=== PATIENT | female | born 1980 | race Two or more races ===

== ENCOUNTER 2017-01-05 07:31 | Inpatient (IN) | payer SELFPAY ==
[2014-08-27 13:30] VITALS: BP 118/69
[2017-01-05] MEDS ORDERED: IV RINGERS,LACTATED 1000ML 1,000 ML IV SCH ×3 (08:13→12:30)
[2017-01-05] MEDS ORDERED: hydrOXYzine IM 50 MG/ML VIAL IM ONE (08:15)
[2017-01-05 09:00] LABS: BASO % 0 % (0-3); EOS % 1 % (0-3); HEMATOCRIT 37.9 % (36.0-47.0); HEMOGLOBIN 12.8 g/dL (12.0-15.5); LYMPH # 2.4 x10^3/uL (1.0-4.8); LYMPH % 25 % (24-48); MEAN CORPUSCULAR HEMOGLOBIN 31 pg (25-35); MEAN CORPUSCULAR HGB CONC 34 g/dL (31-37); MEAN CORPUSCULAR VOLUME 91 fL (79-100); MONO % 8 % (0-9); NEUT % 65 % (31-73); PLATELET COUNT 94 x10^3/uL (140-400); RED BLOOD COUNT 4.15 x10^6/uL (3.50-5.40); RED CELL DISTRIBUTION WIDTH 13.9 % (11.5-14.5); WHITE BLOOD COUNT 9.7 x10^3/uL (4.0-11.0)
[2017-01-05 09:23] LABS: BILIRUBIN,URINE NEGATIVE (NEG); GLUCOSE,URINE NEGATIVE (NEG); NITRITE,URINE NEGATIVE (NEG); PROTEIN,URINE NEGATIVE (NEG-TRACE); UROBILINOGEN,URINE 0.2 mg/dL (0.2 mg/dL)
[2017-01-19] MEDS ORDERED: NAPR500T PO (17:13)
[2017-01-19] MEDS ORDERED: OXYC-323 PO (17:13)
--- NOTE | 2017-02-15 12:48 | SSS ---
ADMIT DATE: 01/05/2017 SUBJECTIVE: This patient is a 36 years old female who is a 3, para 2, history of previous two sections and she is about 36 weeks at the present time, comes into the hospital Labor and Delivery area with a history of having contractions and not feeling good and hence the patient was observed in the hospital. OBJECTIVE: VITAL SIGNS: Stable. HEAD, EYES, NOSE, THROAT: Exam within normal limits. LUNGS: Clear. HEART: Sounds regular sinus rhythm. ABDOMEN: About 37 weeks' size uterus. heart tones are 140 per minute. Vertex presenting. PELVIC: Exam shows cervical os is closed and no vaginal bleeding noted. HOSPITAL COURSE: She did have a monitoring done in Labor and Delivery room area and also urine sample was sent, which came back as normal and she was given IV fluids and after that she did feel better and the patient was sent home with the advice to be seen by the ____ for the care and she was told to call the office and make an appointment within 1 week. DIAGNOSES: 3, para 2, previous two sections. PLAN: Observation and treatment given. She should call the doctor's office to make an appointment in 1 week. JAX ALMARAZ MD DR: MADELYN/yahir JOB#: [id number] / [id number]
== END 2017-01-05 14:30 | disposition home or self-care (01) | DRG 780 ==
LOC: 3 SO LND 07:31 → OBSVTOIN 08:19
PROVIDERS: ADMIT Obstetrics & Gynecology; ATTEND Obstetrics & Gynecology
DX: O47.03 False labor before 37 completed weeks of gestation, third trimester (principal); O09.523 Supervision of elderly multigravida, third trimester; Z3A.37 37 weeks gestation of pregnancy
CPT/HCPCS: 36415; 81003; 82947; 85027; G0379; J3410; J7120

== ENCOUNTER 2020-04-08 14:18 | Emergency (ER) | payer SELFPAY ==
[~2020-04-08] VITALS: Ht 162.6 cm; Wt 76.0 kg
[~2020-04-08 14:18] MED LIST: NAPR-683 PO; OXYC1TAB15 PO
[2020-04-08] MEDS ORDERED: LORazepam 0.5 MG TABLET PO ONE (15:30)
[2020-04-08] MEDS ORDERED: LORA0.5T96 PO (17:04)
--- NOTE | 2020-04-08 17:04 | PHYS DOC ---
Past Medical History Past Medical History: No Pertinent History Past Surgical History: No Surgical History, Smoking Status: Never Smoker Alcohol Use: Occasionally Drug Use: None General Adult EDM: Chief Complaint: SHORTNESS OF BREATH HPI: HPI: Patient is a 39-year-old female who presents to the emergency department with complaints of anxiety problems for the past week. Patient does not state any specific triggers for anxiety. Patient states that she is not on any medications for anxiety. Patient denies any fever chills, vision changes, nasal congestion, cough, shortness of breath, chest pain, nausea, vomiting, diarrhea, constipation, abdominal pain. She denies any dysuria, vaginal discharge, or STI concerns. Patient denies back pain, joint pain, skin rashes, headaches, focal weaknesses, or sensory changes. Patient denies any swelling of her glands. Patient denies any recent life changes, depressions, homicidal or suicidal ideations. Patient states that she is safe at home, and is not having any problems with domestic violence. Patient denies any COVID-19 virus concerns, and also denies any recent exposure to the COVID-19 virus. Review of Systems: Review of Systems: Constitutional: Denies fever or chills. Eyes: Denies change in visual acuity. HENT: Denies nasal congestion or sore throat. Respiratory: Denies cough or shortness of breath. Cardiovascular: Denies chest pain or edema. GI: Denies abdominal pain, nausea, vomiting, constipation or diarrhea. : Denies dysuria. Vaginal discharge or STI concerns. Musculoskeletal: Denies back pain or joint pain. Integument: Denies rash. Neurologic: Denies headache, focal weakness or sensory changes. Lymphatic: Denies swollen glands. Psychiatric: Denies depression or anxiety. Heart Score: Risk Factors: Risk Factors: DM, Current or recent (<one month) smoker, HTN, HLP, family history of CAD, obesity. Risk Scores: Score 0 - 3: 2.5% MACE over next 6 weeks - Discharge Home Score 4 - 6: 20.3% MACE over next 6 weeks - Admit for Clinical Observation Score 7 - 10: 72.7% MACE over next 6 weeks - Early Invasive Strategies Current Medications: Current Medications Medications (Trade) Dose Ordered Sig/Casper Start Time Stop Time Status Last Admin Dose Admin Lorazepam (Ativan) 0.5 mg 1X ONCE 04/08/20 15:30 04/08/20 15:31 DC 04/08/20 15:38 0.5 MG Allergies: Allergies: Allergies Coded Allergies Type Severity Reaction Last Updated Verified No Known Drug Allergies 03/09/14 No Physical Exam: PE: Constitutional: Well developed, well nourished, no acute distress, non-toxic appearance. HENT: Normocephalic, atraumatic, bilateral external ears normal, oropharynx moist, no oral exudates, nose normal. Eyes: PERRLA, EOMI, conjunctiva normal, no discharge. Pupils 5 mm. Neck: Normal range of motion, no tenderness, supple, no stridor. Cardiovascular:Heart rate regular rhythm, no murmur, heart sounds S1-S2, no abnormalities noted per auscultation. Lungs & Thorax: Bilateral breath sounds clear to auscultation all lung kenny. Abdomen: Bowel sounds normal all 4 quadrants auscultation, soft, no tenderness, no masses, no pulsatile masses. Skin: Warm, dry, no erythema, no rash. Back: No tenderness, no CVA tenderness. Extremities: No tenderness, no cyanosis, no clubbing, ROM intact, no edema. Neurologic: Alert and oriented X 3, normal motor function, normal sensory function, no focal deficits noted. Psychologic: Affect normal, judgement normal, mood normal. Current Patient Data: Vital Signs: Vital Signs Date Time Temp Pulse Resp B/P (MAP) Pulse Ox O2 Delivery O2 Flow Rate FiO2 04/08/20 15:10 99.4 94 18 146/92 (110) 100 Room Air 99.4 EKG: EKG: [] Radiology/Procedures: Radiology/Procedures: [] Course & Med Decision Making: Course & Med Decision Making Pertinent Labs and Imaging studies reviewed. (See chart for details) 39-year-old female presents emergency department complaining of feeling anxious. Patient states that she has been going on for at least a week. Patient states that this happened approximately 5 months ago in which she took a medication and it helped her. Patient does not know what medications that she took. Patient states she is not on any current medications. States that she has no allergies. Patient was given 0.5 mg Ativan p.o. in the emergency department, patient states that this helped her a lot. Explained to patient that she will get a prescription for a few of them, but the emergency department is not an appropriate place to have her anxiety care addressed. Patient states that she has an appointment at the [facility] soon and will keep that appointment regarding her anxieties. Patient gave verbal understanding of her discharge instructions, and her scription medications. Patient had no further questions or concerns. Patient discharged to home. Dragon Disclaimer: Maria Luisa Disclaimer: This electronic medical record was generated, in whole or in part, using a voice recognition dictation system. Departure Departure Impression: Primary Impression: Anxiety Disposition: 01 HOME, SELF-CARE Condition: GOOD Referrals: NO PCP (PCP) Patient Instructions: Anxiety and Panic Attacks Additional Instructions: Take prescribed medications as directed, keep your appointment with the [facility], return to emergency department for worsening symptoms, see your doctor soon. Scripts Lorazepam (ATIVAN) 0.5 Mg Tablet 0.5 MG PO PRN PRN for ANXIETY / AGITATION MDD 2MG OR 4 TABLETS, #10 TAB 0 Refills Prov: FRACISCO LEYVA APRN 04/08/20 Justicifation of Admission Dx: Justifications for Admission: Justification of Admission Dx: N/A FRACISCO LEYVA APRN Apr 08, 2020 17:04
[2020-04-08 17:14] VITALS: BP 112/70
== END 2020-04-08 17:14 | disposition home or self-care (01) ==
LOC: ER 14:18
DX: F41.9 Anxiety disorder, unspecified (principal); Z98.890 Other specified postprocedural states
CPT/HCPCS: 99283